=== PATIENT | male | born 1970 | race Caucasian/White ===

== ENCOUNTER 2016-11-29 20:04 | Emergency (ER) | payer MEDICAID ==
[~2016-11-29] VITALS: Ht 157.5 cm; Wt 69.0 kg
[2016-11-29 21:41] VITALS: BP 154/86
== END 2016-11-30 01:52 | disposition left against medical advice (07) ==
LOC: ER 20:04
DX: M79.89 Other specified soft tissue disorders (principal); Z53.21 Procedure and treatment not carried out due to patient leaving prior to being seen by health care provider

== ENCOUNTER 2017-06-06 07:48 | Emergency (ER) | payer MEDICAID ==
[~2017-06-06] VITALS: Ht 157.5 cm; Wt 58.0 kg
[2017-06-06 12:50] VITALS: BP 125/82
== END 2017-06-06 12:57 | disposition home or self-care (01) ==
LOC: ER 07:55
DX: R05 Cough (principal)
CPT/HCPCS: 71045; 87804; 99285; Z7610